=== PATIENT | female | born 1970 | race Caucasian/White ===

== ENCOUNTER → 2020-05-29 10:31 | Outpatient (BNVA) | payer MEDICARE, SELFPAY | PROVIDERS: Visit Provider Nurse Practitioner Family | DX: D64.9 Anemia, unspecified (principal); Z79.899 Other long term (current) drug therapy; E55.9 Vitamin D deficiency, unspecified; I10 Essential (primary) hypertension; I49.9 Cardiac arrhythmia, unspecified; I49.3 Ventricular premature depolarization; R06.02 Shortness of breath | CPT/HCPCS: 80061; 81003; 82306; 82607; 82728; 82746; 83036; 83550; 84439; 84443; 84481; 85025 ==

== ENCOUNTER 2021-02-03 13:56 | Inpatient (IN) | payer MEDICARE, SELFPAY ==
[2021-02-03] VITALS (50 sets, daily range): BP systolic 130–185; BP diastolic 55–114; PULSE 59–82; RESP 11–26; TEMP 36.8; O2SAT 95–98; BMI 37.9
--- NOTE | 2021-02-03 14:56 | XRR_ITS ---
PROCEDURE INFORMATION: Exam: XR Chest Exam date and time: 02/03/2021 2:59 PM Age: 50 years old Clinical indication: Chest pain; Type not specified; Additional info: Cp TECHNIQUE: Imaging protocol: XR of the chest. Views: 1 view. COMPARISON: CR Chest 1 [place] [id number] 12/03/2017 3:43 PM FINDINGS: Lungs: Unremarkable. No consolidation. Pleural spaces: Unremarkable. No pleural effusion. No pneumothorax. Heart/Mediastinum: Unremarkable. No cardiomegaly. Bones/joints: No acute findings. XR/XR chest 1V portable [id number] IMPRESSION: No acute findings.
--- NOTE | 2021-02-03 14:56 | ECG_ITS ---
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 Measurements Intervals [place] Rate: 72 P: 44 HI: 197 QRS: 6 QRSD: 110 T: 83 QT: 399 QTc: 439 Interpretive Statements SINUS RHYTHM LEFT VENTRICULAR HYPERTROPHY AND ST-T CHANGE [VOLTAGE CRITERIA PLUS ST/T ABNORMALITY] PROBABLE INFERIOR MYOCARDIAL INFARCTION [35 ms Q WAVE IN II/aVF], OF INDETERMINATE AGE Compared to ECG 02/03/2021 17:08:01 No significant changes Electronically Signed On 02-04-2021 12:11:16 CDT by Elisa Barnhart M.D. [id number]
--- NOTE | 2021-02-03 15:31 | W.ED.CHESTPA ---
HPI - Chest Pain General: Chief Complaint: Chest Pain Stated Complaint: CP X 1 WK, L ARM SWOLLEN, HX HTN, HEART SKIPPING Time Seen by Provider: 02/03/21 14:50 History of Present Illness: HPI narrative: 50 yo female presents with upper body/cp pressure that has been on/off for one week. pt describes pain similar to overexcertion chest burning that starts in her lower abdomen/midline and radiates all the way up through chest/both arms, neck. state she feels like her left wrist is more swollen than her right. feels like heart skipping occasionally. pt states nothing triggers the attacks. can last few seconds to an hour. gets better is she lies down. no fever, chills, cough, recent illness, n/v/d Associated symptoms: Deny fever(s) Review of Systems Const: Reports: malaise; Denies: fever(s) ENMT: Denies: throat pain Card: Reports: other (see hpi ) Resp: Reports: other (see hpi ) GI: Reports: other (see hpi ) : Denies: difficulty voiding or dysuria Skin/Breast: Denies: rash Neuro: Denies: headache(s) Psych: Denies: anxiety Endo: Denies: polyuria or polydipsia PFSH ED PFSH: Medical History Anemia Anxiety Arrhythmia Degenerative disc disease Dysmenorrhea Elevated liver enzymes Elevated liver enzymes Essential hypertension Fibromyalgia History of CVA in adulthood Medication management Osteoarthritis Otitis externa Otitis media Ruptured lumbar disc Ventricular premature beats Vitamin D deficiency Social History Smoking and tobacco status: current every day smoker Second hand smoke exposure: Yes Alcohol intake: never Desire information about alcohol rehabilitation?: No Counseling given: No Desire information about substance/drug rehabilitation?: No Counseling given: No Physical Exam Const: COMMON NORMALS: no acute distress, patient oriented x3 and alert GENERAL APPEARANCE: cooperative and comfortable Eye: COMMON NORMALS: Equal, round and reactive pupils present Resp: COMMON NORMALS: normal respiratory effort and clear to auscultation bilaterally AUSCULTATION: clear to auscultation bilaterally Cardio: COMMON NORMALS: regular rate and regular rhythm RATE: regular rate RHYTHM: regular rhythm GI: COMMON NORMALS: Soft to palpation and non-tender PALPATION: Yes Soft to palpation Extremity: COMMON NORMALS: normal to inspection, full ROM and capillary refill normal Neuro: COMMON NORMALS: patient oriented x3 SENSORIUM/ORIENTATION: Yes alert GAIT: Yes Normal gait present Psych: COMMON NORMALS: mental status grossly normal and normal affect Skin: COMMON NORMALS: no rashes or lesions noted GENERAL SKIN EXAM: no rashes or lesions noted Course Vital Signs: Vital signs: Vital Signs Temperature 98.2 F 02/03/21 14:08 Pulse Rate 77 02/03/21 17:30 Respiratory Rate 20 H 02/03/21 17:30 Blood Pressure 185/108 02/03/21 17:30 Pulse Oximetry 98 02/03/21 16:53 MDM - Chest Pain MDM Narrative: Medical decision making narrative: pt with elevated troponin, q waves on ekg. pt no current chest pain. discussed with Dr horton and Dr De. pt to be admitted to cardiac stepdown in stable condition. pt given lovenox, brilinta, metoprol 12.5 in ER. Lab Data: Attestation: I reviewed the patient's lab results. Labs: Lab Results 02/03/21 02/03/21 02/03/21 Range/Units 15:05 15:05 15:05 WBC 7.7 (4.0-10.0) 10^3/ uL RBC 4.54 (4.1-5.3) 10^6/u L Hgb 14.8 (11.5-15.3) g/dL Hct 44.4 (37.0-47.0) % MCV 97.8 (81-99) fL MCH 32.6 (28.0-34.0) pg MCHC 33.3 (30.0-36.0) g/dL RDW 14.2 (12.1-15.1) % Plt Count 191 (130-400) 10^3/c mm MPV 11.5 H (7.4-10.4) fL Neut % (Auto) 42.5 % Lymph % (Auto) 43.4 % [place] % (Auto) 8.4 % Eos % (Auto) 4.4 % Baso % (Auto) 1.0 % Neut # (Auto) 3.25 (1.8-7.7) 10^3/u L Lymph # (Auto) 3.3 (0.8-4.8) 10^3/u L [place] # (Auto) 0.6 (0.2-0.9) 10^3/u L Eos # (Auto) 0.3 (0.0-0.8) 10^3/u L Baso # (Auto) 0.1 (0.0-0.1) 10^3/u L Nucleated RBC % (a uto) 0 % Nucleated RBCs # 0.0 /100WBC ESR 24 H (0-15) mm/hr Sodium 136 (136-145) mmol/L Potassium 3.9 (3.5-5.1) mmol/L Chloride 100 (98-107) mmol/L Carbon Dioxide 24 (22-29) mmol/L Anion Gap 15.9 (5-19) BUN 18 (6-20) mg/dL Creatinine 0.6 (0.5-0.9) mg/dL GFR Calculation 105.4 (90-130) mL/min Glucose 95 (65-115) mg/dL Calculated Osmolal ity 284 L (285-295) mOsm/k g Calcium 9.4 (8.5-10.5) mg/dL Total Bilirubin 0.2 (0.15-1.2) mg/dL AST 100 H (0-32) U/L ALT 154 H (0-33) U/L Alkaline Phosphata se 83 (35-105) IU/L Troponin T Baselin e (0-10) ng/L C-Reactive Protein 7.3 H (0.0-4.9) mg/L NT-Pro-B Natriuret Pep 683 H (0-125) pg/mL Total Protein 7.7 (6.6-8.7) g/dL Albumin 4.0 (3.5-5.2) g/dL Globulin 3.7 (1.3-4.6) g/dL Lipase 46 (13-60) U/L Urine Color (Yellow) Urine Appearance (CLEAR) Urine pH (5-7) Ur Specific Gravit y (1.005-1.030) Urine Protein (Negative) Urine Glucose (UA) (Normal) Urine Ketones (Negative) Urine Blood (Negative) Urine Nitrate (Negative) Urine Bilirubin (Negative) Urine Urobilinogen (Negative) mg/dL Ur Leukocyte Юлия ase (Negative) Urine RBC (0-2) /hpf Urine WBC (0-5) /hpf Ur Squamous Epith Cells (0-5) /hpf Amorphous Sediment Urine Bacteria (NONE) /hpf Hyaline Casts /lpf Urine Mucus /hpf 02/03/21 02/03/21 Range/Units 15:05 15:05 WBC (4.0-10.0) 10^3/ uL RBC (4.1-5.3) 10^6/u L Hgb (11.5-15.3) g/dL Hct (37.0-47.0) % MCV (81-99) fL MCH (28.0-34.0) pg MCHC (30.0-36.0) g/dL RDW (12.1-15.1) % Plt Count (130-400) 10^3/c mm MPV (7.4-10.4) fL Neut % (Auto) % Lymph % (Auto) % [place] % (Auto) % Eos % (Auto) % Baso % (Auto) % Neut # (Auto) (1.8-7.7) 10^3/u L Lymph # (Auto) (0.8-4.8) 10^3/u L [place] # (Auto) (0.2-0.9) 10^3/u L Eos # (Auto) (0.0-0.8) 10^3/u L Baso # (Auto) (0.0-0.1) 10^3/u L Nucleated RBC % (a uto) % Nucleated RBCs # /100WBC ESR (0-15) mm/hr Sodium (136-145) mmol/L Potassium (3.5-5.1) mmol/L Chloride (98-107) mmol/L Carbon Dioxide (22-29) mmol/L Anion Gap (5-19) BUN (6-20) mg/dL Creatinine (0.5-0.9) mg/dL GFR Calculation (90-130) mL/min Glucose (65-115) mg/dL Calculated Osmolal ity (285-295) mOsm/k g Calcium (8.5-10.5) mg/dL Total Bilirubin (0.15-1.2) mg/dL AST (0-32) U/L ALT (0-33) U/L Alkaline Phosphata se (35-105) IU/L Troponin T Baselin e 182 H* (0-10) ng/L C-Reactive Protein (0.0-4.9) mg/L NT-Pro-B Natriuret Pep (0-125) pg/mL Total Protein (6.6-8.7) g/dL Albumin (3.5-5.2) g/dL Globulin (1.3-4.6) g/dL Lipase (13-60) U/L Urine Color Yellow (Yellow) Urine Appearance Sl hazy (CLEAR) Urine pH 6.5 (5-7) Ur Specific Gravit y 1.015 (1.005-1.030) Urine Protein Neg (Negative) Urine Glucose (UA) Norm (Normal) Urine Ketones Negative (Negative) Urine Blood Neg (Negative) Urine Nitrate Negative (Negative) Urine Bilirubin Neg (Negative) Urine Urobilinogen Norm (Negative) mg/dL Ur Leukocyte Юлия ase Negative (Negative) Urine RBC 0-4 H (0-2) /hpf Urine WBC 0-4 H (0-5) /hpf Ur Squamous Epith Cells 10-15 H (0-5) /hpf Amorphous Sediment Not Reportable Urine Bacteria Trace (NONE) /hpf Hyaline Casts 0-4 H /lpf Urine Mucus 1+ /hpf EKG Data^: EKG 1: Attestation: I personally reviewed and interpreted this EKG as follows: EKG interpretation date: 02/03/21 EKG interpretation time: 14:22 Interpretation: hr 41, sinus rhythm, PVC, q waves, non specific st changes. Discharge Plan Discharge Patient Disposition: Admitted As Inpatient Admit Provider: Casandra Abrams Clinical Impression: Non-ST elevation TN (NSTEMI) Condition: Stable Coding Level of Care Code ED Behavioral Sciences Department Chair for Chg Fwd Exam Comprehensive
[2021-02-03 15:38] LABS: Basophils # 0.1 10^3/uL (0.0-0.1); Eosinophils # 0.3 10^3/uL (0.0-0.8); Eosinophils % 4.4 %; Hematocrit 44.4 % (37.0-47.0); Hemoglobin 14.8 g/dL (11.5-15.3); Lymphocytes # 3.3 10^3/uL (0.8-4.8); Lymphocytes % 43.4 %; Mean Corpuscular HGB Conc 33.3 g/dL (30.0-36.0); Mean Corpuscular Hemoglobin 32.6 pg (28.0-34.0); Mean Corpuscular Volume 97.8 fL (81-99); Mean Platelet Volume 11.5 fL (7.4-10.4); Monocytes # 0.6 10^3/uL (0.2-0.9); Monocytes % 8.4 %; Neutrophils # 3.25 10^3/uL (1.8-7.7); Neutrophils % 42.5 %; Nucleated Red Blood Cells % 0 %; Platelet Count 191 10^3/cmm (130-400); Red Blood Count 4.54 10^6/uL (4.1-5.3); Red Cell Distribution Width 14.2 % (12.1-15.1); White Blood Count 7.7 10^3/uL (4.0-10.0)
[2021-02-03 16:00] LABS: Urine Appearance SL Hazy (CLEAR); Urine Color Yellow (Yellow)
[2021-02-03 16:01] LABS: Add Urine Microscopic? YES; Bilirubin Urine Neg (Negative); Blood Urine Neg (Negative); Glucose Urine UA Norm (Normal); Ketones Urine Negative (Negative); Leukocyte Esterase Urine Negative (Negative); Nitrate Urine Negative (Negative); Protein Urine Neg (Negative); Specific Gravity, Urine 1.015 (1.005-1.030); Troponin(5th) Baseline 182 ng/L (0-10); Urobilinogen Urine Norm (Negative); pH Urine 6.5 (5-7)
[2021-02-03 16:02] LABS: Add Urine Culture? No; Bacteria Urine TRACE /hpf; Hyaline Casts Urine 0-4 /lpf; Mucus Urine 1+ /hpf; RBC Urine 0-4 /hpf (0-2); WBC Urine 0-4 /hpf (0-5)
[2021-02-03 16:07] LABS: Alanine Aminotransferase 154 U/L (0-33); Alkaline Phosphatase 83 IU/L (35-105); Anion Gap 15.9 (5-19); Aspartate Amino Transferase 100 U/L (0-32); Blood Urea Nitrogen 18 mg/dL (6-20); C Reactive Protein 7.3 mg/L (0.0-4.9); Calcium 9.4 mg/dL (8.5-10.5); Carbon Dioxide 24 mmol/L (22-29); Chloride 100 mmol/L (98-107); Globulin 3.7 g/dL (1.3-4.6); Glomerular Filtration Rate 105.4 mL/min (90-130); Glucose 95 mg/dL (65-115); Lipase 46 U/L (13-60); NT Pro B Type Natriuretic Pept 683 pg/mL (0-125); Osmolality Calculated 284 mOsm/kg (285-295); Potassium 3.9 mmol/L (3.5-5.1); Sodium 136 mmol/L (136-145); Total Bilirubin 0.2 mg/dL (0.15-1.2); Total Protein 7.7 g/dL (6.6-8.7)
[2021-02-03] MEDS: enoxaparin 120 mg/0.8 mL Syringe 110 MG SUBCUT (16:30)
[2021-02-03] MEDS: metoprolol tartrate 25 mg Tablet 12.5 MG PO (16:30)
[2021-02-03] MEDS: ticagrelor 90 mg Tablet 180 MG PO (16:30)
[2021-02-03 16:40] LABS: Slide Review Slide Review Perform
[2021-02-03 16:48] LABS: Erythrocyte Sedimentation Rate 24 mm/hr (0-15)
--- NOTE | 2021-02-03 16:56 | ECG_ITS ---
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 Measurements Intervals [place] Rate: 68 P: 42 VA: 194 QRS: 9 QRSD: 113 T: 77 QT: 427 QTc: 457 Interpretive Statements SINUS RHYTHM POSSIBLE LEFT ATRIAL ENLARGEMENT [-0.1mV P WAVE IN V1/V2] LOW QRS VOLTAGE IN PRECORDIAL LEADS [QRS DEFLECTION < 1.0 mV IN CHEST LEADS] LEFT VENTRICULAR HYPERTROPHY AND ST-T CHANGE INFERIOR MYOCARDIAL INFARCTION , PROBABLY OLD Compared to ECG 12/03/2017 15:23:57 Low QRS voltage now present Left ventricular hypertrophy now present ST (T wave) deviation now present Myocardial infarct finding now present T-wave abnormality no longer present Possible ischemia no longer present Electronically Signed On 02-04-2021 12:35:19 CDT by Elisa Barhnart M.D. [id number]
--- NOTE | 2021-02-03 17:56 | P.HP_ITS ---
Providers/Chief Complaint Admitting Physician: Casandra Abrams MD Primary Care Provider: TA Middleton Chief Complaint: CP X 1 WK, L ARM SWOLLEN, HX HTN, HEART SKIPPING History of Present Illness Brisa Ordaz is a 50 year old female with a past medical history of uncontrolled hypertension, chronic smoking, who presented to the hospital today with 1 week of atypical chest pain. Patient describes her pain as being that of a burning quality, 7-9 on 10 at its maximum intensity, no evident triggers, start spontaneously varyingly either in the region of the epigastrium, left shoulder, radiates up to the jaw and back. She has not identified any potential exacerbating factors. Sleeping and stopping to rest relieves it. This pain has woken her up at nighttime 3 times in the past week. She has not tried nitroglycerin at home. Reports subjective dyspnea with some of these episodes, however this is not consistent. Denies any orthopnea or PND. States noticing lower extremity edema over the same timeframe. No past history of CAD that is known. Intermittently also complaining of palpitations and heart skipping for the last 5 years, evaluated with a Holter in the past, nonrevealing for any arrhythmias. Never had a stress test in the past. Reports dyslipidemia, on lifestyle modification at this present time. EKG in the ER showed sinus rhythm with PVCs, LVH and Q waves in lead V3 V4. Baseline troponin returned at 182. Review of Systems General: Reports: 10 or more systems reviewed and unremarkable except in HPI and below Const: Denies: fever(s), chills or body aches Eyes: Denies: change in vision, blurry vision or photophobia ENMT: Reports: hoarseness; Denies: throat pain, enlarged tonsils, odynophagia or nasal congestion Card: Denies: chest pain, palpitations, irregular heart rhythm, edema, swelling of feet/ankles, lightheadedness, pre-syncope, dyspnea on exertion or orthopnea Resp: Denies: dyspnea, productive cough, non-productive cough, wheezing, stridor, pain on inspiration, change in phlegm color, hemoptysis or chest congestion GI: Denies: abdominal pain, nausea, vomiting, hematemesis, coffee ground emesis, dysphagia, heartburn, diarrhea, constipation, GI cramping, change in stool character, hematochezia or melena : Denies: flank pain, difficulty voiding, dysuria, urinary frequency, urinary urgency, urinary hesitancy or hematuria Musc: Denies: neck pain, back pain, extremity pain, joint swelling, joint warmth or deformity Neuro: Denies: headache(s), numbness in extremities, weakness in extremities, sensory changes, difficulty walking, frequent falls, dizziness, vertigo, behavioral changes, Slurred speech present or seizure-like activity Psych: Denies: anxiety, depression, suicidal ideation or homicidal ideation Endo: Denies: polyuria, polydipsia, tired all the time, cold intolerance or hot flashes Stef/Lymph: Denies: easy bruising or easy bleeding Medications/Allergies Home Medications Medication Instructions Recorded Confirmed Last Taken Type diclofenac sodium 1 % topical gel 4 g TOPICAL QID #100 g 10/28/20 02/03/21 Unknown Rx metoprolol succinate 50 mg 50 mg PO DAILY #90 tab 10/28/20 02/03/21 02/03/21 Rx tablet,extended release 24 hr Celebrex 200 mg PO DAILY@0700 02/03/21 02/03/21 02/03/21 History acetaminophen [Tylenol Extra 500 - 1,000 mg PO Q6H PRN 02/03/21 02/03/21 02/02/21 History Strength] hydrochlorothiazide 25 mg PO DAILY@0700 02/03/21 02/03/21 02/03/21 History metoprolol succinate 100 mg PO DAILY@0700 02/03/21 02/03/21 02/03/21 History valsartan 80 mg PO BID@0700,1800 02/03/21 02/03/21 02/03/21 History Allergies Allergy/AdvReac Type Severity Reaction Status Date / Time bee venom protein (honey bee) Allergy ALGY-Difficulty Verified 02/03/21 14:18 Breathing PFSH Acute PFSH: Medical History Anemia Anxiety Arrhythmia Degenerative disc disease Dysmenorrhea Elevated liver enzymes Elevated liver enzymes Essential hypertension Fibromyalgia History of CVA in adulthood Medication management Osteoarthritis Otitis externa Otitis media Ruptured lumbar disc Ventricular premature beats Vitamin D deficiency Social History Smoking and tobacco status: current every day smoker Second hand smoke exposure: Yes Alcohol intake: never Desire information about alcohol rehabilitation?: No Counseling given: No Desire information about substance/drug rehabilitation?: No Counseling given: No Vitals/I&O/Wt Last Vital Signs Temp 98.2 F 02/03/21 14:08 Pulse 78 02/03/21 16:53 Resp 20 H 02/03/21 16:53 BP 147/94 02/03/21 16:53 Pulse Ox 98 02/03/21 16:53 Weight last 48 hrs Weight 109.769 kg Physical Exam Narrative: EXAM NARRATIVE: General: No acute distress, AO x3 HEENT: PERRLA, pupils bilaterally equal and reactive, pallors not present Chest: Normal vesicular breath sounds, no added sounds, equal good air entry bilaterally CVS: S1-S2 regular, no murmurs, no tachycardia, no gallops, no rubs Abdomen: Soft, nontender, no organomegaly, bowel sounds present Neuro: No focal deficits, no facial deformity, AO x3, power 5/5 in all limbs Extremities: No gross pedal edema Data : 02/03/21 15:05 02/03/21 15:05 A&P Assessment and plan (1) Non-ST elevation NV (NSTEMI): Given symptoms of chest pain, elevated baseline troponin, overall appears to be consistent with a diagnosis of NSTEMI. 2-hour and 6-hour troponins are pending at this present time, however patient's history and multiple risk factors including dyslipidemia, uncontrolled hypertension and smoking puts her at a high risk for cardiac event. He has received full dose Lovenox, Brilinta in the ER. Continue aspirin 81 mg p.o. daily, add statin 40 mg p.o. at bedtime, lipid panel reviewed. Add Nitro-Bid 0.5 every 6 hours Continue metoprolol 100 mg p.o. daily Continue full dose Lovenox every 12 hours Card[address] consult with Dr. Romo. Npo post midnight for possible cath in am, hols valsartan for the same. 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
--- NOTE | 2021-02-03 18:16 | P.CONIM_ITS ---
Providers/Reason For Consult Consulting Physican/Specialty*: Cardiology Reason for Consult*: Non-ST elevation MT Attending Physician: Casandra Abrams MD Primary Care Provider: TA Middleton History of Present Illness History of Present Illness Brisa Ordaz is a 50 year old female past medical history significant for hypertension obesity excessive continuous tobacco abuse hyperlipidemia presented with chest pain going on off and on basis for the last 10 days. Today when it become worse to the extent that it started becoming unbearable and accompanied with shortness of breath he decided to come to the ER. Initial cardiac markers were suggestive of troponin T in range of acute coronary syndrome. It is the reason we have been asked to assist in her care. Patient was loaded with anticoagulation and given Brilinta. Metoprolol was started along with statin and aspirin. Patient has been discussed in detail all risk benefit and already for the procedure. She understand the risk for major minor bleed, urgent emergent surgery, stroke arrhythmia and worse case scenario . She would like to proceed with left heart cath with we are suggesting for non-ST elevation MT. Currently she is chest pain-free. Review of Systems General: Reports: 10 or more systems reviewed and unremarkable except in HPI and below Const: Reports: malaise; Denies: fever(s) Eyes: Denies: change in vision, blurry vision or photophobia ENMT: Denies: throat pain Card: Reports: other (see hpi ) Resp: Reports: other (see hpi ) GI: Reports: other (see hpi ) : Denies: difficulty voiding or dysuria Musc: Denies: neck pain, back pain, extremity pain, joint swelling, joint warmth or deformity Skin/Breast: Denies: rash Neuro: Denies: headache(s) Psych: Denies: anxiety Endo: Denies: polyuria or polydipsia Stef/Lymph: Denies: easy bruising or easy bleeding Meds/Allergies Home Medications and Allergies Home Medications Medication Instructions Recorded Confirmed Last Taken Type diclofenac sodium 1 % topical gel 4 g TOPICAL QID #100 g 10/28/20 02/03/21 Unknown Rx metoprolol succinate 50 mg 50 mg PO DAILY #90 tab 10/28/20 02/03/21 02/03/21 Rx tablet,extended release 24 hr Celebrex 200 mg PO DAILY@0700 02/03/21 02/03/21 02/03/21 History acetaminophen [Tylenol Extra 500 - 1,000 mg PO Q6H PRN 02/03/21 02/03/21 02/02/21 History Strength] hydrochlorothiazide 25 mg PO DAILY@0700 02/03/21 02/03/21 02/03/21 History metoprolol succinate 100 mg PO DAILY@0700 02/03/21 02/03/21 02/03/21 History valsartan 80 mg PO BID@0700,1800 02/03/21 02/03/21 02/03/21 History Allergies Allergy/AdvReac Type Severity Reaction Status Date / Time bee venom protein (honey bee) Allergy ALGY-Difficulty Verified 02/03/21 14:18 Breathing PFSH Acute PFSH: Medical History Anemia Anxiety Arrhythmia Degenerative disc disease Dysmenorrhea Elevated liver enzymes Elevated liver enzymes Essential hypertension Fibromyalgia History of CVA in adulthood Medication management Osteoarthritis Otitis externa Otitis media Ruptured lumbar disc Ventricular premature beats Vitamin D deficiency Social History Smoking and tobacco status: current every day smoker Second hand smoke exposure: Yes Alcohol intake: never Desire information about alcohol rehabilitation?: No Counseling given: No Desire information about substance/drug rehabilitation?: No Counseling given: No Vitals/I&O/Wt Last Vital Signs Temp 98.2 F 02/03/21 14:08 Pulse 78 02/03/21 16:53 Resp 20 H 02/03/21 16:53 BP 147/94 02/03/21 16:53 Pulse Ox 98 02/03/21 16:53 Weight last 48 hrs Weight 242 lb Physical Exam Narrative: EXAM NARRATIVE: GENERAL: Patient is alert, awake and oriented x3. NECK: No jugular vein distension. HEENT: No cyanosis. No icterus. No pallor. HEART: Regular S1 and S2. No murmur, rub or gallop. LUNGS: Clear to auscultate bilaterally. ABDOMEN: Soft, nontender and nondistended. Positive bowel sounds. No guarding, rebound or tenderness. CENTRAL NERVOUS SYSTEM: Grossly nonfocal. EXTREMITIES: Lower extremities without edema bilaterally. A&P Assessment and plan (1) Non-ST elevation MT (NSTEMI): As above patient has been given anticoagulation started on beta-brenton aspirin statin as per ACS protocol. We will proceed with left heart cath and PCI if indicated in the morning. Patient will be n.p.o. overnight. Status: Acute (2) Essential hypertension: Will optimize medicine to control blood pressure.Will add NINA inhibitor. Status: Acute (3) Tobacco abuse counseling: Discussed in detail regarding quitting smoking Status: Acute Consult Attestations Medical Necessity Statement: Patient require continuation hospitalization for above defined care. Coding Level of Care Code New Pt Acute Client Manager [employer] for Evangelina Young Patient Type New History Detailed Exam Detailed Medical Decision Making Moderate Complexity Diagnoses Non-ST elevation MT (NSTEMI) I21.4 Essential hypertension I10 Tobacco abuse counseling Z71.6
[2021-02-03] MEDS: famotidine 20 mg Tablet PO (18:22)
[2021-02-03] MEDS: nitroglycerin 1 gm/inch oint Pkt 0.5 INCH TOPICAL (18:22)
[2021-02-03 18:41] LABS: Troponin 5 2HR 201.2 ng/L (0-10)
[2021-02-03 18:42] LABS: Troponin 5 2HR Delta 19.2 ABS# (0-10)
[2021-02-03] MEDS: nitroglycerin 1 gm/inch oint Pkt 1 INCH TOPICAL (20:17)
[2021-02-03] MEDS: atorvastatin 40 mg Tablet PO (20:37)
[2021-02-03] MEDS: diclofenac 1% Topical Gel 100 gm 1 APPLIC TOPICAL (20:37)
[2021-02-03 20:53] LABS: Estmated Average Glucose 120; Hemoglobin A1C 5.8 % (4.0-6.0)
--- NOTE | 2021-02-03 20:56 | ECG_ITS ---
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 Measurements Intervals [place] Rate: 81 P: 44 RI: 205 QRS: -2 QRSD: 105 T: 28 QT: 377 QTc: 439 Interpretive Statements SINUS RHYTHM WITH OCCASIONAL VENTRICULAR PREMATURE COMPLEXES POSSIBLE LEFT ATRIAL ENLARGEMENT LEFT VENTRICULAR HYPERTROPHY AND ST-T CHANGE POSSIBLE ANTERIOR MYOCARDIAL INFARCTION, PROBABLY OLD INFERIOR MYOCARDIAL INFARCTION , PROBABLY OLD Compared to ECG 12/03/2017 15:23:57 Ventricular premature complex(es) now present Left ventricular hypertrophy now present ST (T wave) deviation now present Myocardial infarct finding now present T-wave abnormality no longer present Possible ischemia no longer present Electronically Signed On 02-04-2021 12:36:46 CDT by Elisa Barnhart M.D. [id number]
[2021-02-03 21:23] LABS: Troponin 5 6HR 211.5 ng/L (0-10)
[2021-02-03 21:25] LABS: Troponin 5 6HR Delta 29.5 ng/L (0-12)
[2021-02-03] MEDS: zolpidem 5 mg Tablet PO (22:05)
[2021-02-04] VITALS (59 sets, daily range): BP systolic 130–220; BP diastolic 55–158; PULSE 57–92; RESP 12–26; TEMP 36.6–36.8; O2SAT 95–98
[2021-02-04] MEDS: nitroglycerin 1 gm/inch oint Pkt 1 INCH TOPICAL ×2 (02:33→06:35)
--- NOTE | 2021-02-04 05:43 | PC.NURSE ---
At this time this patient has called out for this nurse to come to the patient's room. Pt complains of feeling gittery like she has tremors and feeling ever so slightly nauseated. Pt also complains of feelings of chills and sweats but denies any chest pain or increased shortness of breath besides what she initially presented with. Pt is examined and found to not be diaphoretic, blood sugar and a full set of vital signs were obtained to include a temperature with unremarkable results. Pt had taken ambien for the first time over night and has been without nicotine for almost 12 hours.
[2021-02-04 05:44] LABS: Glucose Point of Care 159 mg/dL (70-110)
[2021-02-04] MEDS: metoprolol succinate ER (24 HR) 100 mg Tablet PO (06:35)
--- NOTE | 2021-02-04 08:38 | XACV_ITS ---
Exam Room: [facility] Ht: 170 cm Wt: 110 kg BSA: 2.33 m2 Gender: Female : 1970 Exam Priority: Routine Procedure(s): Procedure Description: Diagnostic procedure Procedure Description: Left Heart Catheterization Diagnostic Cath Status: Urgent Diagnostic Findings * LM has 0% stenosis. * LAD has 0% stenosis. * CX has 0% stenosis. * Mid Right Coronary Artery: Severe 99% stenosis, JACKIE: 0 flow. * dRCA: Mild 20% stenosis, JACKIE: 3 flow. * aMarg1: Moderate 50% stenosis, JACKIE: 3 flow. * Coronary angiography shows right dominance. Interventional Findings * Mid Right Coronary Artery: 99% stenosis treated with AB TREK 2.50X8 RX BALLOON, TYLOR Ma RUSS 3.0X15 IMANI, and MDLilibeth HARRIS EUPHORA RX [id number] BALLOON. 0% residual stenosis, JACKIE: 3 flow. Conclusions 1. There is severe coronary artery disease with one vessel disease. 2. Mid Right Coronary Artery was treated with two Balloon and Drug Eluting Stent. Recommendations * Continue current medical management and risk factor modification. Pressures Phase:Rest AO : 178 / 19 ( 78 ) @ 10:38:00 AM 190 / 64 ( 116 ) @ 10:39:00 AM LV : 178 / 4 / 19 @ 10:38:00 AM 191 / 56 / 55 @ 10:39:00 AM Clinical Evaluation EBL: 5mL-10mL Procedural Details Procedure Consent Obtained. Admit Source: In Patient. Pre-Procedure Time Out. Identified patient by full name and date of as verbalized by the patient/guarantor. Does the consent match the physician's order: Yes. Accurate & Complete Informed Consent: Yes. Inpatient/Outpatient History & Physical on Chart: Yes. If H&P is completed, is and addenduem needed: Yes; If yes, is the addendum complete: N/A. Visualize and Verify Site with Patient/Guarantor: N/A. Relevant Radiology Images available: N/A. Pre-op teaching completed and patient verbalized understanding. The risks, benefits, and alternatives of sedation and/or procedure were discussed by physician. The patient agrees to continue. Procedure started. Correct patient, site and procedure confirmed by cath team. PERRLA. Strong, equal hand import/export analyst bilaterally. Lungs clear x 5 lobes. IV Site on Arrival: 20 gauge in the left wrist. IV Fluids: 0.9% NaCl at KVO. 50 mL infused prior to optical laboratory mechanic. Oxygen started at 2liters/min via nasal canula. bilateral groins was prepped with chloroprep then draped in the usual sterile fashion. right radial was prepped with chloroprep then draped in the usual sterile fashion. Physician notified. Baseline sample Acquired. HR: 90 BPM. Physician arrived. [facility] Clinical Fraility Score: 3: Managing Well. Exhibit Preparator Indications: ACS <= 24 hours. Chest Pain Symptom Assessment: Typical Angina Symptoms. Cardiovascular Instability: No. Physician scrubbed in. Immediate Pre-Procedure Time Out. Correct Patient: Yes; Correct Procedure: Yes; Correct Site: Yes; Correct Patient Position: Yes; Correct Supplies: Yes; Dried Flammable Prep: Yes; Blood Products Available: NA;. Lidocaine 1% infiltrated to the right radial. Arterial access obtained. A 5 botswanan TIG catheter in over wire. Multiple views taken of left coronary artery. Catheter redirected to the RCA. Multiple views taken of right coronary artery. Catheter out. 6 botswanan JR 4 guide catheter was inserted over the wire. AP pads applied to patient. EDP Sample taken: LV 178/4,19; HR: 80 BPM; SpO2: 95%. EDP Sample taken: LV 191/56,55; HR: 77 BPM; SpO2: 95%. Runthrough guidewire was advanced through the guide catheter to lesion in the mid RCA. Wheeler guidewire was advanced through the guide catheter to lesion in the mid RCA. Inflation number : 1 A AB TREK 2.50X8 RX BALLOON was prepped and advanced across the Mid RCA , then inflated to 12 MADDIE for 0:09 seconds. Inflation number: 2 The AB TREK 2.50X8 RX BALLOON was reinflated across the Mid RCA, to 12 MADDIE for 0:08 seconds. Inflation number: 3 The AB TREK 2.50X8 RX BALLOON was reinflated across the Mid RCA, to 18 MADDIE for 0:12 seconds. Balloon out. runthrough wire out. Inflation Number : 4 A TYLOR Ma RUSS 3.0X15 IMANI -Lot Number# [id number] exp date: 10-30-2022 was prepped and advanced across the Mid RCA. The stent was deployed at 16 MADDIE for 0:22 seconds. checking results. Stent balloon out over wire. ACT drawn. Results 385 seconds. Therapeutic limits - pre-heparin administration 90-150 seconds and monitoring heparin during a vascular procedure >250 seconds. Inflation number : 5 A TYLOR HARRIS EUPHORA RX [id number] BALLOON was prepped and advanced across the Mid RCA , then inflated to 18 MADDIE for 0:19 seconds. checking results. Balloon out. wire out. Guide catheter out. A 5 botswanan Peter catheter in over wire. Multiple views taken of left coronary artery. ACT drawn. Results 283 seconds. Therapeutic limits - pre-heparin administration 90-150 seconds and monitoring heparin during a vascular procedure >250 seconds. TR band placed. Hemostasis obtained. Post Procedure: Pulses reassessed and unchanged. PERRLA. Strong, equal hand import/export analyst bilaterally. No VTE prophylaxis required. Medication's Wasted: Lidocaine 1% = 15 mg. Medication's Wasted: Nitro = 49.6 mg. Medication's Wasted: Heparin = 1000 units. Total IV fluids: 90 mL. Contrast type used: Omnipaque 300 mgI/mL, 500 mL bottle. Contrast Material : Omnipaque 367 ml. PCI Indication: subtotally occluded mid RCA. Post-op diagnosis: posst PCI to mid RCA. Complications: none. A TR Band was successful obtaining hemostatsis at the Right Radial artery insertion site. Estimated blood loss: 5mL-10mL. Procedure completed. Patient transferred by wheelchair to 1st floor. Access Site Site: Right Radial artery Sheath Size: 6 Fr Hemostasis Method: TR Band Hemostasis Success: Successful Procedure Medications Start: 11:03 AM Stop: 11:03 AM Medication: Versed Amount: 1 mg Route: I.V. Start: 11:03 AM Stop: 11:03 AM Medication: Fentanyl Amount: 50 mcg Route: I.V. Start: 11:04 AM Stop: 11:04 AM Medication: Versed Amount: 1 mg Route: I.V. Start: 11:04 AM Stop: 11:04 AM Medication: Fentanyl Amount: 50 mcg Route: I.V. Start: 11:23 AM Stop: :23 AM Medication: Nitrogylcerin Amount: 200 mcg Route: I.A. Start: 11:28 AM Stop: 11:28 AM Medication: Heparin Amount: 5000 units Route: I.V. Start: 11:35 AM Stop: 11:35 AM Medication: Versed Amount: 1 mg Route: I.V. Start: 11:35 AM Stop: 11:35 AM Medication: Fentanyl Amount: 50 mcg Route: I.V. Start: 11:36 AM Stop: 11:36 AM Medication: Heparin Amount: 5000 units Route: I.V. Start: 11:42 AM Stop: 11:42 AM Medication: Hydralazine Amount: 10 mg Route: I.V. Start: 11:59 AM Stop: 11:59 AM Medication: Versed Amount: 1 mg Route: I.V. Start: 11:59 AM Stop: 11:59 AM Medication: Fentanyl Amount: 50 mcg Route: I.V. Start: 12:04 PM Stop: 12:04 PM Medication: Nitrogylcerin Amount: 200 mcg Route: I.C. Start: 12:08 PM Stop: 12:08 PM Medication: Hydralazine Amount: 10 mg Route: I.V. I, the attending physician, have reviewed and verified all procedure medications. Yes, all medications given per verbal order History/Risk Factors Tobacco Use: Current/Recent(w/in 1 year) Report Signatures Finalized by Mehul Romo MD on 02/19/2021 07:31 PM
[2021-02-04] MEDS: famotidine 20 mg Tablet PO ×2 (09:32→17:08)
[2021-02-04] MEDS: diphenhydrAMINE 50 mg Capsule PO (09:32)
[2021-02-04] MEDS: aspirin 81 mg EC Tablet PO (09:32)
[2021-02-04] MEDS: sodium chloride 0.9% 1,000 ML 50 ML IV (09:37)
--- NOTE | 2021-02-04 09:57 | PC.CHAP ---
Pastoral Care Encounter/Spiritual Assessment Type of Contact [] Declined mushroom press operator visit [] Patient/Family/Request visit [] Outpatient visit [] Follow-up visit [] Physician referral [] Code/Alert [x] Routine visit [] Staff referral [] Actively dying [] Patient sleeping [] Family support [] [] Out of room [] Palliative care [] [] Receiving care in room [] Pre-surgical visit [] Trauma [] Long length of stay [] ICU visit [] Other: Relational/Emotional Strength [] Patient feels connected with others/family/visitors/staff [] Distress [] Loneliness/isolation [] Abandonment Spirituality of Patient [] Person of [place] [] Attends Quaker of their [place] [] Believes in Prayer [] Reads Bible or Jainism materials [] There are Spiritual issues to be addressed Plant Safety Leader Interventions [x] Prayer [x] Active listening [x] Non-anxious presence [x] Spiritual/emotional support [] Crisis/trauma care [] Spiritual counseling [] Bereavement support [] Provided bereavement packet [] Provided Bible/devotional materials [] Provided toy/stuffed animal, coloring book to patient or family member [] Provided Communion [] Anointing/[place] [] Salvation [x] Completed spiritual assessment [] Other: Impact on Illness or Injury [] Angry [] Fearful [] Anxious [] Often cries [] Exhaustion [] Unable to work [] Unable to attend jainism [] Unable to walk/stand [] Unable to read [] Unable to drive [] Unable to eat/drink [] Unable to sleep [] Unable to be with family [] Patient intubated [] Other: Summary arm still a little swollen... feeling somewhat better Time spent with patient 5 min
[2021-02-04 10:05] LABS: Alanine Aminotransferase 174 U/L (0-33); Albumin Level 4.1 g/dL (3.5-5.2); Alkaline Phosphatase 68 IU/L (35-105); Anion Gap 14.8 (5-19); Aspartate Amino Transferase 122 U/L (0-32); Blood Urea Nitrogen 15 mg/dL (6-20); Calcium 9.3 mg/dL (8.5-10.5); Carbon Dioxide 21 mmol/L (22-29); Chloride 103 mmol/L (98-107); Globulin 3.6 g/dL (1.3-4.6); Glomerular Filtration Rate 105.4 mL/min (90-130); Glucose 117 mg/dL (65-115); Osmolality Calculated 282 mOsm/kg (285-295); Potassium 3.8 mmol/L (3.5-5.1); Sodium 135 mmol/L (136-145); Total Bilirubin 0.3 mg/dL (0.15-1.2); Total Protein 7.7 g/dL (6.6-8.7)
--- NOTE | 2021-02-04 11:08 | W.PM.OPSUD ---
Surgery/Procedure H&P Update DATE OF PROCEDURE: February 04, 2021 DATE H&P PERFORMED: 02/03/21 H&P UPDATE INFORMATION: I have reviewed H&P completed within last 30 days and I have examined patient prior to procedure PREOP DIAGNOSIS: Non-ST relation ND PLANNED PROCEDURE: Operation Date: 02/04/21 10:00 Proposed Procedures p Cardiac Catheterization(Not Applicable) - Mehul Romo MD PATIENT REASSESSED PRIOR TO SEDATION, WITH NO CHANGE NOTED: Yes PHYSICAL EXAM: alert, oriented x 3, clear to auscultation bilaterally and regular rate & rhythm AIRWAY EVAL/ANESTHESIA PLAN: ASA II, Risks, benefits & alternatives of sedation and/or procedure discussed and Patient agrees to continue as planned
--- NOTE | 2021-02-04 11:24 | PM.PN ---
Subjective Subjective: Interval history: Plan for cardiac cath this morning. No acute overnight events. Transient bradycardia this morning with heart rate at 47, patient reports feeling asymptomatic. Medications: Reviewed: Yes Vitals/I&O/Wt Last Vital Signs Temp 98.3 F 02/03/21 23:15 Pulse 79 02/04/21 10:48 Resp 20 H 02/04/21 10:48 BP 152/80 02/04/21 10:48 Pulse Ox 96 02/04/21 10:48 02/03/21 02/04/21 02/04/21 22:59 06:59 14:59 Intake Total 740 / 740 Balance 740 / 740 Weight last 48 hrs Weight 109.769 kg Physical Exam Narrative: EXAM NARRATIVE: General: No acute distress, AO x3 HEENT: PERRLA, pupils bilaterally equal and reactive, pallors not present Chest: Normal vesicular breath sounds, no added sounds, equal good air entry bilaterally CVS: S1-S2 regular, no murmurs, no tachycardia, no gallops, no rubs Abdomen: Soft, nontender, no organomegaly, bowel sounds present Neuro: No focal deficits, no facial deformity, AO x3, power 5/5 in all limbs Extremities: No gross pedal edema Data : 02/03/21 15:05 02/04/21 09:13 A&P Assessment and plan (1) Non-ST elevation NM (NSTEMI): Cardiac cath this morning Continue aspirin 81 mg p.o. daily, lipitor 40mg po daily Continue metoprolol 100 mg p.o. daily, instead of 150mg po daily given overnight bradycardia Resume ARB after procedure echocardiogram results pending Status: Acute Attestations Medical Necessity Statement*: [facility] today Coding Level of Care Code Acute Outbound Sales Advisor for Carmen Fwd Diagnoses Non-ST elevation NM (NSTEMI) I21.4
[2021-02-04] MEDS: sodium chloride 0.9% 1,000 ML 100 ML IV (12:30)
--- NOTE | 2021-02-04 13:05 | PC.NURSE ---
Patient to CSU from dental laboratory assistant. A&O, VSS. 2 nurse verification of insertion site, asymptomatic. Patient educated on activity restrictions and smoking cessation. Verbalized understanding. Orders clarified with Dr. Romo. Telephone order to discontinue nitro paste. Order losartan 100 mg PO daily, first dose now. Run IVF for a total of 1L. RBTO. Nurse to continue to monitor.
--- NOTE | 2021-02-04 13:26 | PC.NURSE ---
nitro paste removed.
[2021-02-04] MEDS: clopidogrel 300 mg Tablet 600 MG PO (13:39)
[2021-02-04] MEDS: losartan 50 mg Tablet 100 MG PO (13:40)
[2021-02-04] MEDS: nicotine 21 mg Patch 1 PATCH TRANSDERMA (13:41)
[2021-02-04] MEDS: amlodipine 10 mg Tablet PO (16:29)
[2021-02-04] MEDS: nitroglycerin drip 50 MG/250 ML PREMIX IV (17:08)
--- NOTE | 2021-02-04 17:54 | USCV_ITS ---
Brisa Ordaz Age: 50 Gender: F : 1970 Exam Date: 02/04/2021 05:47 Ordering Phys: Casandra Abrams MD Technologist: Delilah Dillon Exam Location: [facility] [place] Indication: NSTEMI BP: 141 / 70 HR: 64 Rhythm: Sinus Technical Quality: Fair MEASUREMENTS (Male / Female) Normal Values 2D ECHO LV Diastolic Diameter PLAX 5.6 cm 4.2 - 5.9 / 3.9 - 5.3 cm LV Systolic Diameter PLAX 3.5 cm LV Chamber Size 4.6 cm IVS Diastolic Thickness 1.4 cm 0.6 - 1.0 / 0.6 - 0.9 cm IVS Systolic Thickness 2.1 cm LVPW Diastolic Thickness 1.3 cm 0.6 - 1.0 / 0.6 - 0.9 cm LVPW Systolic Thickness 2.1 cm RV Chamber Size 2.8 cm LVOT Diameter 2.0 cm LV Ejection Fraction 2D Teich 67.6 % LV Ejection Fraction MOD 2C 49.9 % LV Ejection Fraction 2C AL 54.3 % LA Diameter 3.5 cm LA Width 3.0 cm LA Height 4.8 cm RA Width 3.4 cm RA Height 3.9 cm Aorta at Sinotubular Diameter 3.5 cm M-MODE LV Diastolic Diameter MM 5.5 cm 4.2 - 5.9 / 3.9 - 5.3 cm LV Systolic Diameter MM 3.3 cm LV Ejection Fraction MM Teich 69.3 % IVS Diastolic Thickness MM 1.5 cm 0.6 - 1.0 / 0.6 - 0.9 cm IVS Systolic Thickness MM 2.2 cm LVPW Diastolic Thickness MM 1.5 cm 0.6 - 1.0 / 0.6 - 0.9 cm LVPW Systolic Thickness MM 2.0 cm RV Diastolic Diameter MM 2.2 cm Aortic Annulus Diameter 3.6 cm LA Ao Ratio MM 1.0 MV E Point Septal Separation 1.2 cm DOPPLER AV Peak Velocity 154.0 cm/s LVOT Peak Velocity 88.0 cm/s AV Area Cont Eq vti 2.8 cm squared AV Area Cont Eq pk 1.8 cm squared MV Area PHT 3.7 cm squared Mitral E to A Ratio 0.8 MV E' Velocity 35.5 cm/s Mitral E to MV E' Ratio 11.7 Mitral E to LV E' Lateral Ratio 11.5 Mitral E to LV E' Septal Ratio 11.9 TR Peak Velocity 150.3 cm/s TR Peak Gradient 9.0 mmHg TR Mean Velocity 170.3 cm/s TR Mean Gradient 13.7 mmHg TR Velocity Time Integral 61.0 cm Right Atrial Pressure 3.0 mmHg Pulmonary Artery Systolic Pressu 12.0 mmHg PV Peak Velocity 67.0 cm/s RV Acceleration Time 0.1 s RV Ejection Time 0.4 s RV AcT/ET 0.4 FINDINGS Left Ventricle Normal left ventricular cavity size. No regional wall motion abnormalities. Normal left ventricular systolic function. Left ventricular ejection fraction is estimated at 65 %. Grade I/IV diastolic dysfunction (abnormal relaxation filling pattern), normal to mildly elevated filling pressures. Right Ventricle The right ventricle is normal in size and function. Right Atrium The right atrium is normal in size. Left Atrium The left atrium is normal in size. Mitral Valve Mildly thickened mitral valve. No mitral valve stenosis. Moderate mitral valve regurgitation. Aortic Valve Structurally normal aortic valve without significant sclerosis or stenosis. There is no aortic regurgitation. Tricuspid Valve Structurally normal tricuspid valve without significant stenosis or regurgitation. Pulmonary artery systolic pressure is normal. Pulmonic Valve Structurally normal pulmonic valve without significant stenosis. There is no pulmonic regurgitation. Pericardium Normal pericardium without effusion. Aorta Normal ascending aorta dimension. CONCLUSIONS 1-Normal left ventricular cavity size. No regional wall motion abnormalities. Normal left ventricular systolic function. Left ventricular ejection fraction is estimated at 65 %. Grade I/IV diastolic dysfunction (abnormal relaxation filling pattern), normal to mildly elevated filling pressures. 2-Mildly thickened mitral valve. No mitral valve stenosis. Moderate mitral valve regurgitation. 3-There is no pericardial effusion. 4-Pulmonary artery systolic pressure is within normal limits. 5-Right atrial pressure is around 5 mm of mercury. 6-There are no prior echocardiogram studies to compare. Mehul Romo MD (Electronically Signed) Final Date: 06 February 2021 20:35 S
--- NOTE | 2021-02-04 18:51 | PC.NURSE ---
TR band off at 1730, air removed slowly per protocol. Patient tolerated well. Dressing applied. CDI. Nurse to continue to monitor.
[2021-02-04] MEDS: metoprolol succinate ER (24 HR) 25 mg Tablet PO (21:24)
[2021-02-04] MEDS: losartan 50 mg Tablet PO (21:25)
[2021-02-04] MEDS: atorvastatin 40 mg Tablet PO (21:25)
[2021-02-04] MEDS: diclofenac 1% Topical Gel 100 gm 1 APPLIC TOPICAL (21:26)
[2021-02-04] MEDS: zolpidem 5 mg Tablet PO (21:26)
--- NOTE | 2021-02-04 22:13 | PC.NURSE ---
Beside report received from Rebekah Cottrell RN. Patient is resting in bed. Patient voices complaints of pain in back. Tramadol offered but patient refused. Diclofenac gel applied to lower back. Patient voices no other needs at this time. Nurse will continue to monitor.
--- NOTE | 2021-02-04 23:03 | P.PN_ITS ---
Subjective Subjective: Interval history: Patient underwent left heart cath noted to have a tight mid RCA 99% stenosis which was subtotally occluded. It was crossed with somewhat difficulty. Treated with balloon angioplasty followed by drug eluting stent postdilated with noncompliant balloon. She was also noted to have uncontrolled hypertension. Medications: Reviewed: Yes Vitals/I&O/Wt Last Vital Signs Temp 98 F 02/04/21 19:31 Pulse 88 02/04/21 22:07 Resp 18 02/04/21 19:31 BP 193/98 02/04/21 21:25 Pulse Ox 98 02/04/21 19:31 02/04/21 02/04/21 02/05/21 14:59 22:59 06:59 Intake Total 284.167 / 480.627 5404.400 / 1686.567 Balance 284.167 / 739.311 5428.400 / 1686.567 Weight last 48 hrs Weight 242 lb Physical Exam Narrative: EXAM NARRATIVE: GENERAL: Patient is alert, awake and oriented x3. NECK: No jugular vein distension. HEENT: No cyanosis. No icterus. No pallor. HEART: Regular S1 and S2. No murmur, rub or gallop. LUNGS: Clear to auscultate bilaterally. ABDOMEN: Soft, nontender and nondistended. Positive bowel sounds. No guarding, rebound or tenderness. CENTRAL NERVOUS SYSTEM: Grossly nonfocal. EXTREMITIES: Lower extremities without edema bilaterally. Const: COMMON NORMALS: alert Resp: COMMON NORMALS: clear to auscultation bilaterally AUSCULTATION: clear to auscultation bilaterally Neuro: SENSORIUM/ORIENTATION: Yes alert Data : 02/03/21 15:05 02/04/21 09:13 A&P Assessment and plan (1) Non-ST elevation GA (NSTEMI): Status post PCI to mid RCA which was culprit vessel. Patient is complaining of shortness of breath after loading with Brilinta yesterday. We will discontinue Brilinta and switch to Plavix and aspirin. Status: Acute (2) Essential hypertension: Blood pressure is elevated will start nitro drip. Will increase losartan to 150 mg. May add amlodipine if blood pressure did not improve. Status: Acute (3) Tobacco abuse counseling: Discussed in detail regarding lifestyle modification and cessation of tobacco. Status: Acute Attestations Medical Necessity Statement*: Patient require continuation hospitalization for above defined care. Coding Level of Care Code Established Pt Acute Glass Blowing Lathe Operator for Chg Fwd Patient Type Established History Detailed Exam Detailed Medical Decision Making Moderate Complexity Diagnoses Non-ST elevation GA (NSTEMI) I21.4 Essential hypertension I10 Tobacco abuse counseling Z71.6
[2021-02-05] VITALS (8 sets, daily range): BP systolic 146–175; BP diastolic 79–96; PULSE 72–90; RESP 12–21; TEMP 36.6–37; O2SAT 94–98
[2021-02-05 04:57] LABS: Basophils % 0.6 %; Eosinophils # 0.3 10^3/uL (0.0-0.8); Eosinophils % 3.6 %; Hematocrit 41.7 % (37.0-47.0); Hemoglobin 13.5 g/dL (11.5-15.3); Lymphocytes # 2.3 10^3/uL (0.8-4.8); Lymphocytes % 31.5 %; Mean Corpuscular HGB Conc 32.4 g/dL (30.0-36.0); Mean Corpuscular Hemoglobin 32.5 pg (28.0-34.0); Mean Corpuscular Volume 100.5 fL (81-99); Mean Platelet Volume 11.4 fL (7.4-10.4); Monocytes # 0.5 10^3/uL (0.2-0.9); Monocytes % 7.2 %; Neutrophils # 4.11 10^3/uL (1.8-7.7); Neutrophils % 56.8 %; Nucleated Red Blood Cells % 0 %; Platelet Count 155 10^3/cmm (130-400); Red Blood Count 4.15 10^6/uL (4.1-5.3); Red Cell Distribution Width 14.6 % (12.1-15.1); White Blood Count 7.2 10^3/uL (4.0-10.0)
[2021-02-05 05:12] LABS: Anion Gap 11.8 (5-19); Blood Urea Nitrogen 12 mg/dL (6-20); Calcium 8.5 mg/dL (8.5-10.5); Carbon Dioxide 22 mmol/L (22-29); Chloride 106 mmol/L (98-107); Glomerular Filtration Rate 105.4 mL/min (90-130); Glucose 133 mg/dL (65-115); Osmolality Calculated 284 mOsm/kg (285-295); Potassium 3.8 mmol/L (3.5-5.1); Sodium 136 mmol/L (136-145)
[2021-02-05] MEDS: carvedilol 6.25 mg Tablet PO (07:13)
--- NOTE | 2021-02-05 07:34 | P.PN_ITS ---
Subjective Subjective: Interval history: Patient had episodes of night bradycardia and hypotension post PCI. I will switch her to carvedilol from metoprolol. We will start her 6.25 mg of carvedilol twice a day. No overnight event after PCI. Most likely discharge today Medications: Reviewed: Yes Vitals/I&O/Wt Last Vital Signs Temp 97.9 F 02/05/21 07:01 Pulse 81 02/05/21 07:01 Resp 13 02/05/21 07:01 BP 159/93 02/05/21 07:01 Pulse Ox 98 02/05/21 07:01 02/04/21 02/05/21 02/05/21 22:59 06:59 14:59 Intake Total 1402.400 / 1686.567 376.05 / 2061.617 Balance 1402.400 / 1686.567 376.05 / 2061.617 Weight last 48 hrs Weight 242 lb Physical Exam Narrative: EXAM NARRATIVE: GENERAL: Patient is alert, awake and oriented x3. NECK: No jugular vein distension. HEENT: No cyanosis. No icterus. No pallor. HEART: Regular S1 and S2. No murmur, rub or gallop. LUNGS: Clear to auscultate bilaterally. ABDOMEN: Soft, nontender and nondistended. Positive bowel sounds. No guarding, rebound or tenderness. CENTRAL NERVOUS SYSTEM: Grossly nonfocal. EXTREMITIES: Lower extremities without edema bilaterally. Const: COMMON NORMALS: alert Resp: COMMON NORMALS: clear to auscultation bilaterally AUSCULTATION: clear to auscultation bilaterally Neuro: SENSORIUM/ORIENTATION: Yes alert Data : 02/05/21 04:20 02/05/21 04:20 A&P Assessment and plan (1) Non-ST elevation [place] (NSTEMI): Stable from cardiovascular perspective. Post PCI to mid RCA. Continue current regimen including Plavix aspirin statin Status: Acute (2) Essential hypertension: Blood pressure is improving. Switch from metoprolol to carvedilol. Increase losartan 200 mg in the morning and 50 mg in the evening. Continue aspirin statin Plavix. Most likely discharge today once okay by our medical colleague Status: Acute (3) Tobacco abuse counseling: Patient is on nicotine patches however we discussed regarding quitting. Status: Acute Attestations Medical Necessity Statement*: Status post PCI with uncontrolled hypertension. Improved post PCI. Most likely discharge today Coding Level of Care Code Established Pt Acute Career Based Intervention Coordinator for Chg Fwd Patient Type Established History Detailed Exam Detailed Medical Decision Making Moderate Complexity Diagnoses Non-ST elevation IL (NSTEMI) I21.4 Essential hypertension I10 Tobacco abuse counseling Z71.6
[2021-02-05] MEDS: aspirin 81 mg EC Tablet PO (09:03)
[2021-02-05] MEDS: losartan 50 mg Tablet 100 MG PO (09:04)
[2021-02-05] MEDS: famotidine 20 mg Tablet PO (09:04)
--- NOTE | 2021-02-05 10:10 | PC.NURSE ---
Pt does not want nicotine patch because she believes it is the cause to her blood pressure issues. Patient also did not want her voltaren gel because she said it makes her sleepy. Aside from this patient is resting in bed with no complaints.
[2021-02-05] MEDS: amlodipine 10 mg Tablet PO (14:54)
--- NOTE | 2021-02-05 16:09 | PC.NURSE ---
Patient has discharge orders but blood pressures have been elevated. At 14:56 received orders from Jose Alberto to give Amlodipine 10mg ONCE and recheck blood pressure in an hour. Blood pressure is now 170/100. Received new orders to give Imdur 30mg ONCE. And recheck blood pressure in one hour
[2021-02-05] MEDS: isosorbide mononitrate 20 mg Tablet 30 MG PO (16:41)
--- NOTE | 2021-02-05 19:15 | PM.DCS ---
Discharge Providers Date of Admission: 02/03/21 16:25 Date of Discharge: February 05, 2021 Attending Provider at Admission: Casandra Abrams MD Attending Provider at Discharge: Casandra Abrams MD Primary Care Provider: TA Middleton Diagnoses at Discharge Discharge Diagnosis (1) Non-ST elevation PR (NSTEMI): Status: Acute (2) Essential hypertension: Status: Acute (3) Tobacco abuse counseling: Status: Acute Reason for Visit Reason for Visit: CP X 1 WK, L ARM SWOLLEN, HX HTN, HEART SKIPPING Hospital Course Hospital Course Brisa Ordaz is a 50 year old female with a past medical history of uncontrolled hypertension, chronic smoking, who presented to the hospital with 1 week of atypical chest pain. EKG in the ER showed sinus rhythm with PVCs, LVH and Q waves in lead V3 V4. Baseline troponin returned at 182 with rising deltas. She was diagnosed with NSTEMI, underwent cardiac cath noted to have a tight mid RCA 99% stenosis which was subtotally occluded. It was crossed with somewhat difficulty. Treated with balloon angioplasty followed by drug eluting stent. She was also noted to have uncontrolled hypertension. She was switched to carvedilol from metoprolol. No overnight event after PCI., except requiring NTG infusion shortly after PCI for uncontrolled HTN. It has since been discontinued. Patient denies any chest pain at discharge.Increase losartan 200 mg in the morning and 50 mg in the evening. Continue aspirin statin Plavix. Physical Exam Narrative: EXAM NARRATIVE: GEN: Awake, alert and oriented, no acute distress CVS: S1S2 N RS: CTA B/L Abd: Soft, nt/nd , bs+ GASOLINE ENGINE INSPECTOR: no focal neuro deficits Discharge Data Data Completed and Pending: Completed Studies During Hospitalization Category Date Time Status XR chest 1V caity ble 23587 Stat Exams 02/03/21 14:56 Completed Pending at discharge Category Date Time Status CLAIM PROCESSING SPECIALIST request for service Routin e Exams 02/04/21 08:38 Taken CV echo complete* [id number] Routine Ultrasound 02/04/21 17:54 Taken Labs from last 24 hours 02/05/21 02/05/21 04:20 04:20 WBC 7.2 RBC 4.15 Hgb 13.5 Hct 41.7 MCV 100.5 H MCH 32.5 MCHC 32.4 RDW 14.6 Plt Count 155 MPV 11.4 H Neut % (Auto) 56.8 Lymph % (Auto) 31.5 Sampson % (Auto) 7.2 Eos % (Auto) 3.6 Baso % (Auto) 0.6 Neut # (Auto) 4.11 Lymph # (Auto) 2.3 Sampson # (Auto) 0.5 Eos # (Auto) 0.3 Baso # (Auto) 0.0 Nucleated RBC % (a uto) 0 Nucleated RBCs # 0.0 Sodium 136 Potassium 3.8 Chloride 106 Carbon Dioxide 22 Anion Gap 11.8 BUN 12 Creatinine 0.6 GFR Calculation 105.4 Glucose 133 H Calculated Osmolal ity 284 L Calcium 8.5 Vitals: Last Vital Signs Temp 98.5 F 02/05/21 15:19 Pulse 76 02/05/21 15:19 Resp 18 02/05/21 15:19 BP 175/95 02/05/21 15:19 Pulse Ox 95 02/05/21 15:19 Discharge Plan Discharge Patient Disposition: Home Condition: Stable Prescriptions: New atorvastatin 40 mg Tablet 40 mg PO BEDTIME Qty: 30 RF: 3 carvedilol 6.25 mg Tablet 6.25 mg PO Q12H Qty: 60 RF: 3 aspirin 81 mg Tablet,Delayed Release (Dr/Ec) 81 mg PO DAILY Qty: 90 RF: 3 nicotine 21 mg/24 hr Patch 24 Hour 1 patch transdermal DAILY Qty: 14 RF: 1 nitroglycerin 0.4 mg Tablet, Sublingual 0.4 mg sublingual Q5M PRN (Reason: Chest Pain) Qty: 30 RF: 1 clopidogrel 75 mg tablet 75 mg PO DAILY Qty: 90 RF: 4 Continued diclofenac sodium [Voltaren] 1 % gel 4 g TOPICAL QID Qty: 100 RF: 2 Tylenol Extra Strength 500 mg Tablet 500 - 1,000 mg PO Q6H PRN (Reason: Pain) RF: 0 metoprolol succinate 100 mg tablet extended release 24 hr 100 mg PO DAILY@0700 RF: 0 hydrochlorothiazide 25 mg tablet 25 mg PO DAILY@0700 RF: 0 Changed valsartan 80 mg tablet 80 mg PO BID@0700,1800 Qty: 60 RF: 3 Discontinued metoprolol succinate 50 mg tablet extended release 24 hr 50 mg PO DAILY Qty: 90 RF: 1 celecoxib [Celebrex] 200 mg capsule 200 mg PO DAILY@0700 RF: 0 Discharge Orders: Discharge Order (Routine); Ordered 02/05/21 Ordered By: Casandra Abrams Referrals: SHANE Camarena FNP [Primary Care Provider] - (Please follow-up with SHANE CHAPPELL on February 11 at 10:30A.M. If have any questions or need to reschedule. Please call ) Mehul Romo MD [Physician] - (Please follow-up with Dr. Romo on March 13 at 3:30P.M. If you have any questionsor need to reshedule. Please call ) Nicole Murillo FNP [Nurse Practitioner] - (Please follow-up with Nicole Murillo on February 13 at 9:00A.M. If you need to reschedule. Please call ) Discharge Diet: Cardiac Discharge Activity: Increase activity as tolerated Patient Instructions: Nitroglycerin (By mouth), Aspirin (By mouth), Nicotine (Absorbed through the skin), Atorvastatin (By mouth), Carvedilol (By mouth), Clopidogrel (By mouth), Coronary Angioplasty (DC), Coronary Intravascular Stent Placement (DC), Post Angiogram Home Care Instructions Activity Restrictions/Additional Instructions: Follow-up with Nicole Murillo cardiology nurse practitioner in 7 days. Follow-up with Dr. Romo in 6 to 8 weeks. Please continue clopidogrel 75 mg and aspirin 81 mg for at least couple of years. Please continue to refrain from smoking. Discharge Attestations Time Spent in Discharge Care*: greater than 30 min Quality Metrics Clinical Quality Measures During this hospital stay, did patient experience: AMI Clinical Trial Participant: No Contraindication to aspirin (AMI): Aspirin given Contraindication to statin: Statin prescribed Contraindication to PCI: PCI performed Coding Level of Care Code Acute Chg FW DC note Diagnoses Non-ST elevation PR (NSTEMI) I21.4 Essential hypertension I10 Tobacco abuse counseling Z71.6
--- NOTE | 2021-02-05 19:25 | PC.NURSE ---
Patients blood pressure manually after Imdur was 162/79. Dr. salvador was okay with this and the patient went home with her family member.
--- NOTE | 2021-02-05 19:28 | PC.NURSE ---
D/C instructions given, pt had no questions or concerns. Patient IV removed, VS had improved. Patient left with family via ER exit.
--- NOTE | 2021-02-07 17:00 | PC.RESP ---
Smoking Cessation information sent to patient.
== END 2021-02-05 19:33 | disposition home or self-care (01) | DRG 247 ==
LOC: ER 16:26 → CSU 16:43
PROVIDERS: Internal Medicine Cardiovascular Disease; Admitting Provider Student in an Organized Health Care Education/Training Program; Emergency Provider Student in an Organized Health Care Education/Training Program; PCP Nurse Practitioner Family; Visit Provider Student in an Organized Health Care Education/Training Program
PROC: 027034Z Dilation of Coronary Artery, One Artery with Drug-eluting Intraluminal Device, Percutaneous Approach (ICD-10-PCS; principal; 2021-02-04 10:00)
PROC: 027034Z Dilation of Coronary Artery, One Artery with Drug-eluting Intraluminal Device, Percutaneous Approach (ICD-10-PCS; 2021-02-04 10:00)
DX: I21.4 Non-ST elevation (NSTEMI) myocardial infarction (principal); I25.10 Atherosclerotic heart disease of native coronary artery without angina pectoris; I10 Essential (primary) hypertension; F17.210 Nicotine dependence, cigarettes, uncomplicated; E78.5 Hyperlipidemia, unspecified; F41.9 Anxiety disorder, unspecified; M19.90 Unspecified osteoarthritis, unspecified site; M79.7 Fibromyalgia; Z86.73 Personal history of transient ischemic attack (TIA), and cerebral infarction without residual deficits; E55.9 Vitamin D deficiency, unspecified; R00.1 Bradycardia, unspecified; I95.9 Hypotension, unspecified
CPT/HCPCS: 36415; 36416; 71045; 80048; 80053; 81001; 82962; 83036; 83690; 83880; 84484; 85025; 85347; 85651; 86140; 93005; 93306; 93458; 96372; 99285; C1769; C1874; C1887; C1894; C9600; J0360; J1644; J1650; J2250; J3010; J3490; J7030; Q0163; Q9967

== ENCOUNTER 2021-07-01 10:20 | Outpatient (CLI) | payer MEDICARE, SELFPAY ==
--- NOTE | 2021-07-01 10:42 | ECG_ITS ---
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 Interpretive Statements NAME OF STUDY: EXERCISE SESTAMIBI STRESS TEST INDICATION: Chest Pain; PVCs Baseline blood pressure of 143/78 mm Hg and heart rate of 84 beats per minute. EKG showed sinus tachycardia with possible old inferior myocardial infarction. Nonspecific ST-T wave abnormality. The patient exercised for 5 minutes 1 second on a standard Young protocol. Patient attained a maximum heart rate of 151 beats per minute(89% of the maximum predicted heart rate) with a blood pressure at the peak exercise of 192/83 mm Hg. The EKG at the peak exercise revealed sinus tachycardia with no significant ST-T wave changes. Patient did not have any chest pain or any significant arrhythmis with the exercise. Isolated PVCs were noted during exercise. Study was terminated due to exertional fatigue and shortness of breath. During the recovery phase, there were no new changes. Blood pressure at the end of the recovery phase was 121/79 mm Hg with a heart rate of 113 beats per minute. Isolated PVCs were noted in recovery. CONCLUSION: 1. Normal EKG response to treadmill exercise. 2. No exercise-induced chest pain or cardiac arrhythmia. 3. Fair exercise tolerance, attained a maximum of 7 METs. Maximum VO2 of 24.5 mL/kg/min. 4. Baseline hypertension with normal response to exercise. 5. Perfusion scan will be documented separately. Electronically Signed On 07-05-2021 15:19:15 CDT by Elisa Barnhart M.D. [id number]
[2021-07-01 10:43] VITALS: BMI 35.6
--- NOTE | 2021-07-01 10:43 | NMCV_ITS ---
NM rupal perf SPECT r/s* [id number] Brisa Ordaz Age: 50 Gender: F : 1970 Exam Date: 07/01/2021 10:43 Ordering Phys: Nicole Murillo Technologist: TARSHA Senior Exam [facility]: [facility] Indications: MYOCARDITIS STRESS TEST [facility] IMAGE PROTOCOL Rest/Stress 1 Exercise Day Radiopharmaceutical Dose (mCi) Administration Site Administered by Rest: Tc-99m 10.6 IV TARSHA Senior Sestamibi Stress:Tc-99m 32.7 IV KIRIT SeniorMT Sestamibi Rest: 01-Jul-2021 60 Discovery 630 Stress: 01-Jul-2021 15 Discovery 630 Radiopharmaceutical was injected at 86 % maximum heart rate. Images obtained in supine and prone position. SPECT RESULTS Technical Quality: Excellent Raw Data Analysis: Breast attenuation Image Corrections: Summed Stress Score: 9 Summed Rest Score: 6 Summed Difference Score: 3 PERFUSION FINDINGS Small sized perfusion abnormality of moderate severity of basal to mid inferior and basl to mid infero-lateral chen on rest images with mild reversibility in stress images. FUNCTIONAL RESULTS (calculated via Gated SPECT) Stress Image LV EF (%): 69 Stress EDV (mL):85 TID: 0.82 Stress ESV (mL):26 FUNCTIONAL FINDINGS: The left ventricle is normal in size. Transient Ischemia Dilatation of 0.82. There is normal left ventricular systolic function. The left ventricular ejection fraction is normal with a value of 69%. There is normal left ventricular wall thickening with no regional wall motion abnormality. Normal end diastolic and end systolic volumes. IMPRESSIONS 1. Small sized perfusion abnormality of moderate severity of basal to mid inferior and basl to mid infero-lateral chen with mild reversibility in stress images. 2. This may represent old myocardial infarction in circumflex artery territory with mild az-infarct ischemia. 3. Overall left ventricular systolic function is normal without regional wall motion abnormalities. 4. The left ventricular ejection fraction is normal with a value of 69%. 5. No prior similar studies to compare. Elisa Barnhart MD (Electronically Signed) Final Date: 04 July 2021 07:11 S
[2021-07-01 12:54] VITALS: BP 121/79; PULSE 110
== END 2021-07-01 10:21 | disposition home or self-care (01) ==
LOC: CDL 10:23
PROVIDERS: PCP Nurse Practitioner Family; Visit Provider Nurse Practitioner Family
DX: R07.9 Chest pain, unspecified (principal); I51.4 Myocarditis, unspecified; R94.39 Abnormal result of other cardiovascular function study
CPT/HCPCS: 78452; 93017; A9500

== ENCOUNTER → 2021-10-08 10:00 | Outpatient (BNVA) | payer MEDICARE, SELFPAY | PROVIDERS: PCP Nurse Practitioner Family; Visit Provider Family Medicine | DX: Z11.3 Encounter for screening for infections with a predominantly sexual mode of transmission (principal) | CPT/HCPCS: 87491 ==

== ENCOUNTER 2021-11-03 14:04 | Emergency (ER) | payer MEDICARE, SELFPAY ==
--- NOTE | 2021-11-03 14:22 | XRR_ITS ---
PROCEDURE INFORMATION: Exam: XR Chest Exam date and time: 11/03/2021 2:22 PM Age: 50 years old Clinical indication: Device placement; Ett placement (vent status); Additional info: Post-intubation TECHNIQUE: Imaging protocol: XR of the chest. Views: 1 view. COMPARISON: CR XR chest 1V portable [id number] 02/03/2021 2:57 PM FINDINGS: Tubes, catheters and devices: Endotracheal tube in place 6 cm above the christi. Lungs: Linear atelectasis or infiltrate at the right lung base. Pleural spaces: Unremarkable. No pleural effusion. No pneumothorax. Heart/Mediastinum: Mild cardiomegaly. Bones/joints: Unremarkable. XR/XR chest 1V portable [id number] IMPRESSION: 1. Endotracheal tube in expected positioning. 2. Mild cardiomegaly. 3. Linear atelectasis or infiltrate at the right lung base.
--- NOTE | 2021-11-03 14:25 | CT_ITS ---
WS: [id number] CT HEAD NONCONTRAST HISTORY: ams TECHNIQUE: Contiguous axial imaging performed through the brain in 2.5 mm imaging. Bone and soft tiss ue windows. Sagittal and coronal reformats reviewed. All CT scans at [facility] use at least one of these dose optimization techniques: automated exposure control; mA and/or kV adjustment per pa tient size (includes targeted exams where dose is matched to clinical indication); or iterative recon struction. DLP: 895.51 mGy.cm COMPARISON: None available. There is a large amount of acute intracranial blood. Large amount of subarachnoid blood and intravent ricular blood is noted bilaterally. There is blood extending through the lateral ventricles predomina ntly layering posteriorly and extending through the third ventricle and fourth ventricle to the basil ar cisterns. There is blood surrounding the brainstem. Temporal horns are markedly dilated. The entir e ventricular system is dilated. There is bilateral diffuse cerebral edema. Mild inferior displacemen t of cerebellar tonsils. There is no midline shift due to the symmetry of the edema. Large amount of subarachnoid blood bilaterally. Paranasal sinuses: As visualized are clear. Mastoid air cells: Well pneumatized. Calvarium and scalp: Skull is intact with no soft tissue edema or swelling. CT/CT head wo con* [id number] IMPRESSION: 1. Large amount of intracranial hemorrhage. 2. There is extensive blood filling the ventricular system with dilatation of the ventricular system. 3. Large amount of bilateral subarachnoid hemorrhage. Favor probable rupture o f a large aneurysm. Etiology may be the anterior circulation as there is a very large amount of blood between the anterior ventricles. 4. Large amount of cerebral edema. Impending herniation. No midline shift due to the symmetric edema. Notified Jabier Cannon MD at 11/03/2021 at the time of the scan.
[2021-11-03 14:30] VITALS: BP 155/83; PULSE 60; RESP 16; O2SAT 99; BMI 26.6
[2021-11-03 14:35] VITALS: RESP 16
[2021-11-03 14:36] VITALS: BP 127/72
[2021-11-03 14:36] LABS: Basophils # 0.1 10^3/uL (0.0-0.1); Basophils % 0.7 %; Eosinophils # 0.3 10^3/uL (0.0-0.8); Eosinophils % 2.1 %; Hematocrit 44.5 % (37.0-47.0); Hemoglobin 14.5 g/dL (11.5-15.3); Lymphocytes # 4.1 10^3/uL (0.8-4.8); Lymphocytes % 26.5 %; Mean Corpuscular HGB Conc 32.6 g/dL (30.0-36.0); Mean Corpuscular Hemoglobin 31.9 pg (28.0-34.0); Mean Corpuscular Volume 97.8 fl (81-99); Mean Platelet Volume 11.8 fL (7.4-10.4); Monocytes # 0.9 10^3/uL (0.2-0.9); Monocytes % 5.8 %; Neutrophils # 9.94 10^3/uL (1.8-7.7); Neutrophils % 64.5 %; Nucleated Red Blood Cells % 0 %; Platelet Count 236 10^3/cmm (130-400); Red Blood Count 4.55 10^6/uL (4.1-5.3); Red Cell Distribution Width 13.9 % (12.1-15.1); White Blood Count 15.4 10^3/uL (4.0-10.0)
[2021-11-03] MEDS: propofol 10 mg/mL SDV 20 mL 100 MG IVP (14:39)
[2021-11-03] MEDS: vecuronium 10 mg SDV 20 MG IVP (14:39)
[2021-11-03 14:49] LABS: ABG PCO2 42.1 mmHg (35-45); ABG PH Result 7.33 (7.35-7.45); Arterial Blood Gas Hematocrit 46.2 % (37-47); Base Excess ABG -3.7 mmol/L (-2.0-2.0); Blood Gas Allen Test Pos; Blood Gas Sample Site Radial, left; Blood Gas Sample Type Arterial; HCO3 ABG 22.1 mmol/L (22-26)
[2021-11-03 14:50] LABS: Oxygen Device VENT
[2021-11-03] MEDS: propofol 1,000 MG/100 ML INJ 5 MG IV (14:50)
--- NOTE | 2021-11-03 14:54 | ED_ITS ---
HPI - General Adult General: Chief complaint: Shortness of Breath/Dyspnea Stated complaint: UNRESPONSIVE Time Seen by Provider: 11/03/21 14:22 History of Present Illness: HPI narrative: Patient is a 50F w/ CVA, prior MN, recent covid infection who presents the emergency room for acute onset of AMS. Patient was found down at home b family. EMS was altered and flight medicine arrived. Shortly while patient was in route, patient became unresponsive. EMS started pacing patient had a rate of 80. Patient's blood pressure vitals were otherwise wnl. Glucose of 122. Rest of history limited given severity of disease. Onset: earlier today Duration:ongoing Location:home Severity: moderate Review of Systems General: Reports: ROS unobtainable due to endotracheal tube, ROS unobtainable due to medical condition and ROS unobtainable due to mental status PFS ED PFSH: Medical History Anemia Anxiety Arrhythmia Back pain Degenerative disc disease Dysmenorrhea Elevated liver enzymes Elevated liver enzymes Essential hypertension Fibromyalgia History of CVA in adulthood History of MN (myocardial infarction) Medication management Neck pain Osteoarthritis Otitis externa Otitis media Ruptured lumbar disc Ventricular premature beats Vitamin D deficiency Social History Smoking and tobacco status: current every day smoker Second hand smoke exposure: Yes Alcohol intake: never Desire information about alcohol rehabilitation?: No Counseling given: No Desire information about substance/drug rehabilitation?: No Counseling given: No Physical Exam HENMT: COMMON NORMALS: atraumatic HEAD & SCALP: atraumatic MOUTH: moist mucous membranes abnormal and other (vomitus around the lips) Eye: COMMON NORMALS: EOMs intact bilaterally and conjunctivae normal CONJUNCTIVA: Yes conjunctivae normal Neck/C-Spine: COMMON NORMALS: full ROM and supple Resp: COMMON NORMALS: normal respiratory effort and clear to auscultation bilaterally AUSCULTATION: clear to auscultation bilaterally Cardio: COMMON NORMALS: regular rate RATE: regular rate GI: COMMON NORMALS: Soft to palpation and non-tender (in all quadrants) PALPATION: Yes Soft to palpation Extremity: COMMON NORMALS: full ROM Neuro: MOTOR EXAM: Other motor observations present (confused and obtunded, GCS of 6) Psych: MOOD & AFFECT: Yes Other affect and mood findings present (Unable to assess given AMS) Procedures Central Line Placement Left Femoral: Time Out Performed: Yes Patient Placed on Monitor/Pulse Ox: Yes MD Prep: mask, gown and gloves Central Line Prep: Povidone-Iodine 1% Ultrasound Used for Placement: Yes Central Line Lumen Inserted: triple Post Procedure: sutured in place, good blood return and all ports aspirated, flushed, capped Post Procedure X-Ray: tip of catheter in good position Patient Tolerated Procedure: well and no complications Complications: none Intubation Time out performed: Yes sedative: other (propofol) Mg Given: 100 paralytic: Vecuronium Mg Given: 20 Laryngoscope: Aleks ET Tube Size: 7.5 ET Tube Uncuffed: Yes Tube Secured Depth (cm): 21 Tube Secured Location: lips Tube Placement Confirmation: visualized tube passing through cords, equal breath sounds bilaterally, no breath sounds over epigastrium and confirmation by capnometry Patient Tolerated Procedure: well Intubation Complications: difficult intubation Course Vital Signs: Vital signs: Vital Signs Pulse Rate 60 11/03/21 14:30 Respiratory Rate 16 11/03/21 14:35 Blood Pressure 155/83 11/03/21 14:30 Pulse Oximetry 99 11/03/21 14:30 MDM - General Adult MDM Narrative: Medical decision making narrative: Patient is a 50-year-old female with a history of recent COVID, prior MN, CVA presenting to the emergency room for concerns of altered mental status and respiratory depression. On arrival, patient is obtunded somnolent with vomitus around the lips. Decision was made to intubate upon arrival. Cardiac pacing was discontinued. Please refer to the procedure note for intubation. CT head showed acute larege intracranial hemorrhage with filling of the ventricles. Initial BP of 180/90. Patient was started on nicardipine drip at 10mg/hr. Keppra 1g given for seizure prophlayxis and decadron 10mg given for vasogenic edema. Case discussed with Dr. Deng from [facility] who agrees with the transfer. Central line placed. Please refer to the procedure note. Patient is on fentanyl drip and propofol drip. Nicardipine is going at 10mg/hr. Latest BP of 127/72. Disposition: transfer to outside hospital Lab Data: Labs: Lab Results 01/17/22 01/17/22 01/17/22 14:12 14:12 14:12 WBC 15.4 10^3/uL H 10 ^3/uL (4.0-10.0) RBC 4.55 10^6/uL 10^6 /uL (4.1-5.3) Hgb 14.5 g/dL g/dL (11.5-15.3) Hct 44.5 % % (37.0-47.0) MCV 97.8 fl fl (81-99) MCH 31.9 pg pg (28.0-34.0) MCHC 32.6 g/dL g/dL (30.0-36.0) RDW 13.9 % % (12.1-15.1) Plt Count 236 10^3/cmm 10^3 /cmm (130-400) MPV 11.8 fL H fL (7.4-10.4) Neut % (Auto) 64.5 % % Lymph % (Auto) 26.5 % % Mcdonough % (Auto) 5.8 % % Eos % (Auto) 2.1 % % Baso % (Auto) 0.7 % % Neut # (Auto) 9.94 10^3/uL H 10 ^3/uL (1.8-7.7) Lymph # (Auto) 4.1 10^3/uL 10^3/ uL (0.8-4.8) Mcdonough # (Auto) 0.9 10^3/uL 10^3/ uL (0.2-0.9) Eos # (Auto) 0.3 10^3/uL 10^3/ uL (0.0-0.8) Baso # (Auto) 0.1 10^3/uL 10^3/ uL (0.0-0.1) Nucleated RBC % (a uto) 0 % % Nucleated RBCs # 0.0 /100WBC /100W BC Specimen Type Sample Site ABG pH ABG pCO2 ABG pO2 ABG HCO3 ABG Base Excess Ean Test Hematocrit O2 Delivery Device FiO2 PEEP Public Policy Associate ID Sodium 138 mmol/L mmol/L (136-145) Potassium 3.2 mmol/L L mmol /L (3.5-5.1) Chloride 101 mmol/L mmol/L (98-107) Carbon Dioxide 20 mmol/L L mmol/ L (22-29) Anion Gap 20.2 H (5-19) BUN 11 mg/dL mg/dL (6-20) Creatinine 0.7 mg/dL mg/dL (0.5-0.9) GFR Calculation 88.2 mL/min L mL/ min (90-130) Glucose 177 mg/dL H mg/dL (65-115) Calculated Osmolal ity 290 mOsm/kg mOsm/ kg (285-295) Lactate 4.6 mmol/L H* mmo l/L (0.5-2.2) Calcium 8.8 mg/dL mg/dL (8.5-10.5) Total Bilirubin 0.2 mg/dL mg/dL (0.15-1.2) AST 27 U/L U/L (0-32) ALT 24 U/L U/L (0-33) Alkaline Phosphata se 84 IU/L IU/L (35-105) Troponin T Baselin e Total Protein 7.3 g/dL g/dL (6.6-8.7) Albumin 4.2 g/dL g/dL (3.5-5.2) Globulin 3.1 g/dL g/dL (1.3-4.6) Lipase 41 U/L U/L (13-60) TSH 4.14 uIU/mL uIU/m L (0.27-4.20) Free T4 1.06 ng/dL ng/dL (0.82-1.77) Salicylates < 0.3 mg/dL L mg/ dL (3-10) Acetaminophen < 5.0 ug/mL L ug/ mL (10-30) 11/03/21 11/03/21 14:12 14:37 WBC RBC Hgb Hct MCV MCH MCHC RDW Plt Count MPV Neut % (Auto) Lymph % (Auto) Mcdonough % (Auto) Eos % (Auto) Baso % (Auto) Neut # (Auto) Lymph # (Auto) Mcdonough # (Auto) Eos # (Auto) Baso # (Auto) Nucleated RBC % (a uto) Nucleated RBCs # Specimen Type Arterial Sample Site Radial, left ABG pH 7.33 L (7.35-7.45) ABG pCO2 42.1 mmHg mmHg (35-45) ABG pO2 205.0 mmHg H mmHg (80.0-100.0) ABG HCO3 22.1 mmol/L mmol/ L (22-26) ABG Base Excess -3.7 mmol/L L mmo l/L (-2.0-2.0) Ean Test Pos Hematocrit 46.2 % % (37-47) O2 Delivery Device Vent FiO2 100.0 % % PEEP 6.0 cmH20 cmH20 Public Policy Associate ID Rieri Sodium Potassium Chloride Carbon Dioxide Anion Gap BUN Creatinine GFR Calculation Glucose Calculated Osmolal ity Lactate Calcium Total Bilirubin AST ALT Alkaline Phosphata se Troponin T Baselin e 6 ng/L ng/L (0-10) Total Protein Albumin Globulin Lipase TSH Free T4 Salicylates Acetaminophen Imaging Data^: Other Imaging: Radiologist's impression: [facility] [place], [place] [id number] Scan ReportSigned Patient: Brisa Ordaz AUnit #: [id number]: 1970Acct#:[id number]/Sex: 50 / FADM Date: 11/03/21Loc: ERRoom/Bed:Attending Dr: Ordering Provider/Ordering MD: Jabier Cannon MD Date of Service: 11/03/21 Procedure(s): CT head wo con* [id number] Accession Number(s): [id number] Report Number: [id number] WS: [id number] CT HEAD NONCONTRAST HISTORY: ams TECHNIQUE: Contiguous axial imaging performed through the brain in 2.5 mm imaging. Bone and soft tissue windows. Sagittal and coronal reformats reviewed. All CT scans at [facility] use at least one of these dose optimization techniques: automated exposure control; mA and/or kV adjustment per patient size (includes targeted exams where dose is matched to clinical indication); or iterative reconstruction. DLP: 895.51 mGy.cm COMPARISON: None available. There is a large amount of acute intracranial blood. Large amount of subarachnoid blood and intraventricular blood is noted bilaterally. There is blood extending through the lateral ventricles predominantly layering posteriorly and extending through the third ventricle and fourth ventricle to the basilar cisterns. There is blood surrounding the brainstem. Temporal horns are markedly dilated. The entire ventricular system is dilated. There is bilateral diffuse cerebral edema. Mild inferior displacement of cerebellar tonsils. There is no midline shift due to the symmetry of the edema. Large amount of subarachnoid blood bilaterally. Paranasal sinuses: As visualized are clear. Mastoid air cells: Well pneumatized. Calvarium and scalp: Skull is intact with no soft tissue edema or swelling. CT/CT head wo con* [id number] IMPRESSION: 1. Large amount of intracranial hemorrhage. 2. There is extensive blood filling the ventricular system with dilatation of the ventricular system. 3. Large amount of bilateral subarachnoid hemorrhage. Favor probable rupture of a large aneurysm. Etiology may be the anterior circulation as there is a very large amount of blood between the anterior ventricles. 4. Large amount of cerebral edema. Impending herniation. No midline shift due to the symmetric edema. Notified Jabier Cannon MD at 11/03/2021 at the time of the scan. Dictated By:Sarah Saleh DOSigned By:Sarah Saleh DOSigned Date/Time:11/03/21 1607DD/ 1600 Discharge Plan Discharge Patient Disposition: Admitted As Inpatient Clinical Impression: Altered mental status, Acute respiratory distress Condition: Stable Coding Level of Care Code ED Nutrition Partner for Evangelina Fwd Exam Comprehensive
--- NOTE | 2021-11-03 14:56 | ECG_ITS ---
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1970 Requested By: Jabier Cannon Order Number: [id number] Reading MD: DEBORAH ALVARENGA Measurements Intervals [place] Rate: 38 P: -2 IA: 198 QRS: 15 QRSD: 126 T: 12 QT: 556 QTc: 443 Interpretive Statements SINUS BRADYCARDIA PROLONGED QT INTERVAL CRITICAL TEST RESULT Compared to ECG 02/03/2021 18:08:58 Prolonged QT interval now present Sinus rhythm no longer present Left ventricular hypertrophy no longer present ST (T wave) deviation no longer present Myocardial infarct finding no longer present Electronically Signed On 11-03-2021 20:53:25 TURFGRASS MANAGEMENT PROFESSOR by DEBORAH ALVARENGA [email or web address]
[2021-11-03 15:09] LABS: Alanine Aminotransferase 24 U/L (0-33); Albumin Level 4.2 g/dL (3.5-5.2); Alkaline Phosphatase 84 IU/L (35-105); Anion Gap 20.2 (5-19); Aspartate Amino Transferase 27 U/L (0-32); Blood Urea Nitrogen 11 mg/dL (6-20); Calcium 8.8 mg/dL (8.5-10.5); Carbon Dioxide 20 mmol/L (22-29); Chloride 101 mmol/L (98-107); Free T4 Free Thyroxine 1.06 ng/dL (0.82-1.77); Globulin 3.1 g/dL (1.3-4.6); Glomerular Filtration Rate 88.2 mL/min (90-130); Glucose 177 mg/dL (65-115); Lipase 41 U/L (13-60); Osmolality Calculated 290 mOsm/kg (285-295); Potassium 3.2 mmol/L (3.5-5.1); Sodium 138 mmol/L (136-145); Thyroid Stimulating Hormone 4.14 uIU/mL (0.27-4.20); Total Bilirubin 0.2 mg/dL (0.15-1.2); Total Protein 7.3 g/dL (6.6-8.7)
[2021-11-03 15:12] LABS: Acetaminophen < 5.0 ug/mL (10-30); Salicylate < 0.3 mg/dL (3-10)
[2021-11-03 15:18] LABS: Lactate (Lactic Acid level) 4.6 mmol/L (0.5-2.2)
[2021-11-03 15:28] LABS: Troponin(5th) Baseline 6 ng/L (0-10)
[2021-11-03] MEDS: nicardipine 20 MG/200 ML PREMIX 5 MG IV (16:14)
--- NOTE | 2021-11-03 16:34 | PC.NURSE ---
Pt found unresponsive by EMS [facility] transferring pt to [facility] - pt HR and O2 dropped, 79% and 30s respectively. Pt arrived at [facility] O2 79%, HR 36 30mg etomidate - 1406 100mg succinycholine - 1406 100mg succinycholine - 1409 EMS line discovered at this point to be infiltrated 18g IV established 1410 20mg vecuronium - 1416 100mg propofol - 1416 Pt intubated 7.5, 22@lip - 1420 Staff present Sukh RN, Lisa RN, Manda RT, Raina RT, Annalee RT, Chanda GN, Dr. Cannon,
[2021-11-03 16:38] LABS: Troponin 5 2HR Delta 0 ABS# (0-10)
[2021-11-03 17:01] LABS: INR 0.96 (0.8-1.2)
[2021-11-03] MEDS: dexamethasone 10 mg/mL INJ IVP (17:08)
[2021-11-03 17:17] VITALS: BP 94/56; PULSE 50; RESP 14; O2SAT 94
[2021-11-03 17:32] VITALS: BP 112/85; PULSE 53; RESP 14; O2SAT 93
[2021-11-03 17:35] LABS: Add Urine Microscopic? YES; Bilirubin Urine Neg (Negative); Blood Urine 3+ (Negative); Glucose Urine UA Norm (Normal); Ketones Urine Negative (Negative); Leukocyte Esterase Urine Negative (Negative); Nitrate Urine Negative (Negative); Protein Urine Trace (Negative); RBC Urine 0-4 /hpf (0-2); Specific Gravity, Urine 1.025 (1.005-1.030); Urine Appearance Hazy (CLEAR); Urine Color Dark Yellow (Yellow); Urobilinogen Urine Norm (Negative); pH Urine 5 (5-7)
[2021-11-03 17:36] LABS: Add Urine Culture? No; Bacteria Urine 2+ /hpf
[2021-11-03 17:36] LABS: Partial Thromboplastin Time 28.1 SECONDS (23.9-36.7)
--- NOTE | 2021-11-05 00:52 | PC.NURSE ---
Received positive dlood culture result from lab for 1 of 4 bottles positive for gram (+) cocci in clusters. Per Dr Booth, I spoke with the nurse who is caring for the pt at [facility] and informed her of the result.
[2021-11-06 09:40] LABS: Bacillus cereus group Not Detected (NOT DETECT); Bacillus subtillis group Not Detected (NOT DETECT); Corynebacterium Not Detected (NOT DETECT); Cutibacterium acnes (P.acnes) Not Detected (NOT DETECT); Enterococcus Not Detected (NOT DETECT); Enterococcus faecalis Not Detected (NOT DETECT); Enterococcus faecium Not Detected (NOT DETECT); Lactobacillus species Not Detected (NOT DETECT); Listeria Not Detected (NOT DETECT); Listeria monocytogenes Not Detected (NOT DETECT); Micrococcus Detected (NOT DETECT); Pan Candida Not Detected (NOT DETECT); Pan Gram-Negative Not Detected (NOT DETECT); Staphylococcus epidermidis Not Detected (NOT DETECT); Staphylococcus lugdunensis Not Detected (NOT DETECT); Staphylococcus species Not Detected (NOT DETECT); Streptococcus agalactiae Not Detected (NOT DETECT); Streptococcus anginosus group Not Detected (NOT DETECT); Streptococcus pneumoniae Not Detected (NOT DETECT); Streptococcus pyogenes Not Detected (NOT DETECT); Streptococcus species Not Detected (NOT DETECT)
[2021-11-06 09:43] LABS: mecC Not Detected (NOT DETECT)
== END 2021-11-03 17:35 ==
PROVIDERS: Emergency Provider Emergency Medicine; PCP Nurse Practitioner Family
DX: R41.82 Altered mental status, unspecified (principal); R06.03 Acute respiratory distress; I10 Essential (primary) hypertension; Z86.73 Personal history of transient ischemic attack (TIA), and cerebral infarction without residual deficits; I25.2 Old myocardial infarction; F17.210 Nicotine dependence, cigarettes, uncomplicated
CPT/HCPCS: 31500; 36415; 36556; 36600; 51702; 70450; 71045; 80053; 80307; 81001; 82803; 83605; 83690; 84439; 84443; 84484; 85025; 85610; 85730; 87040; 87070; 87150; 87205; 93005; 94002; 94799; 96365; 96366; 96367; 96375; 99291; 99292; C1751; J1100; J1953; J2704; J3010; J3490; J7050